=== PATIENT | male | born 1960 | race Hispanic/Latino ===

== ENCOUNTER 2024-02-07 18:11 | Inpatient (IN) | payer OTHER ==
[2024-02-07] MEDS ORDERED: Acetaminophen 500 MG TAB ONE (19:29)
[2024-02-07] MEDS ORDERED: Promethazine HCl 25 MG/ML VIAL IM PRN (22:45)
[2024-02-07] MEDS ORDERED: Glucagon 1 MG/ML KIT IM PRN (22:45)
[2024-02-07] MEDS ORDERED: Dextrose 50% Abboject 50 ML SYRINGE SLOW IVP PRN (22:45)
[2024-02-07] MEDS ORDERED: Ondansetron PF 4 MG/2 ML Vial IVP PRN (22:45)
[2024-02-07] MEDS ORDERED: Dextrose 5% in Water 1,000 ML IV PRN (22:45)
[2024-02-08] MEDS: Acetaminophen 325 MG TAB PO PRN (00:55)
[2024-02-08] MEDS: TETANUS AND DIPHTHERIA TOX/PF 0.5 ML DISP.SYRIN IM SCH (01:46)
[2024-02-08 03:25] VITALS: BMI 29.7
[2024-02-08] MEDS: TETANUS, DIPHTHERIA TOX,ADULT (TDVAX) 0.5 ML VIAL IM ONE (03:32)
[2024-02-08 06:48] LABS: Anion Gap 13 mmol/L (10-20); BUN (Urea Nitrogen) 9 mg/dL (8.4-25.7); Calc. Creatinine Clearance 121 mL/min (70-130); Calcium 8.9 mg/dL (7.8-10.44); Carbon Dioxide 22 mmol/L (23-31); Chloride 105 mmol/L (98-107); Estimated GFR 101; Glucose 139 mg/dL (80-115); Potassium 3.6 mmol/L (3.5-5.1); Sodium 136 mmol/L (136-145)
[2024-02-08 07:47] LABS: Hematocrit 43.1 % (42.0-52.0); Hemoglobin 14.9 g/dL (14.0-18.0); Mean Corpuscular HGB CONC 34.6 g/dL (32.0-36.0); Mean Corpuscular Volume 89.6 fL (78.0-98.0); Mean Platelet Volume 12.5 fL (7.4-10.4); Platelet Count 85 10x3/uL (130-400); RBC Distribution Width 13.5 % (11.5-14.5); Red Blood Cell (RBC) Count 4.81 mill/uL (4.70-6.10)
[2024-02-08 08:10] LABS: #Basophils 0.03 10x3/uL (0.0-0.2); #Eosinophils Less than 0.03 10x3/uL (0.0-0.7); %Basophils 0.5 % (0.0-1.0); %Eosinophils 0.3 % (0.0-10.0); %Lymphocytes 12.7 % (21.0-51.0); %Monocytes 7.5 % (0.0-10.0); %Neutrophils 78.7 % (42.0-75.0); Platelet Adequacy Comment Platelets Decreased; Poikilocytosis MODERATE=16-30 cells HPF (0-5); Polychromasia SLIGHT = 2-3 cells HPF (0-2)
[2024-02-08] MEDS: Famotidine 20 MG TAB PO SCH (10:51)
[2024-02-08] MEDS: traMADol HCl 50 MG TAB PO PRN (10:51)
[2024-02-08] MEDS: hydrALAZINE 20 MG/ML VIAL SLOW IVP PRN (10:59)
[2024-02-08] MEDS: Insulin Regular, Human 100 UNIT/ML 10 ML VIAL SC PRN (18:52)
[2024-02-09] MEDS ORDERED: prednisoLONE 1% Ophth Susp 5 ml Bottle EA EYE SCH (09:00)
[2024-02-09] MEDS: prednisoLONE 1% Ophth Susp 5 ml Bottle EA EYE SCH ×2 (09:23→21:27)
[2024-02-09] MEDS ORDERED: Ibuprofen 600 MG TAB PO PRN (22:15)
[2024-02-09] MEDS: Insulin Regular, Human 100 UNIT/ML 10 ML VIAL SC PRN (22:27)
[2024-02-09] MEDS: Labetalol HCl 100 MG/20 ML VIAL SLOW IVP PRN (23:13)
[2024-02-10] MEDS: Atorvastatin Calcium 10 MG TAB PO SCH (08:48)
[2024-02-10] MEDS: metFORMIN 500 MG TAB PO SCH (08:48)
[2024-02-10] MEDS: Lisinopril 20 MG TAB PO SCH (08:48)
[2024-02-10] MEDS ORDERED: Insulin NPH Human Isophane 100 UNITS/ML (10 ML VIAL) SC SCH (09:00)
[2024-02-10] MEDS ORDERED: INSULIN REGULAR 100 UNIT/ML SC SCH (09:00)
[2024-02-10] MEDS ORDERED: metFORMIN 500 MG TAB PO SCH (09:00)
[2024-02-10] MEDS: Insulin NPH Human Isophane 100 UNITS/ML (10 ML VIAL) SC SCH (09:40)
[2024-02-10] MEDS: Amlodipine 5 MG TAB PO SCH (21:05)
[2024-02-11] MEDS: Morphine 4 MG/ML VIAL SLOW IVP PRN (06:57)
[2024-02-11 12:37] VITALS: BP 137/77; TEMP 98.4
== END 2024-02-11 15:02 | DRG 86 ==
LOC: ERS 18:11 → EEVIPCON 18:11 → IMCU/EMU 22:45 → SURG B 02-10 17:29
PROVIDERS: ADMIT Surgery; ATTEND Surgery
DX: S06.5X0A Traumatic subdural hemorrhage without loss of consciousness, initial encounter (principal); S05.91XA Unspecified injury of right eye and orbit, initial encounter; I10 Essential (primary) hypertension; Y04.2XXA Assault by strike against or bumped into by another person, initial encounter; E11.40 Type 2 diabetes mellitus with diabetic neuropathy, unspecified; Z79.4 Long term (current) use of insulin; Z79.899 Other long term (current) drug therapy; Z79.84 Long term (current) use of oral hypoglycemic drugs
CPT/HCPCS: 36416; 70450; 70486; 72125; 80048; 85025; 90714; 94760; J0360; J1815; J2272

== ENCOUNTER 2024-03-03 00:26 | Inpatient (IN) | payer OTHER ==
[2024-03-03] MEDS ORDERED: levETIRAcetam 500 MG (5 mL) VIAL ONE (00:41)
[2024-03-03] MEDS ORDERED: Midazolam HCl 5 mg/ml Vial ONE (00:58)
[2024-03-03] MEDS ORDERED: KETAMINE 100 MG/ML (5ML VIAL) ONE (00:59)
[2024-03-03 02:20] LABS: #Basophils 0.04 10x3/uL (0.0-0.2); %Basophils 0.4 % (0.0-1.0); %Eosinophils 0.3 % (0.0-10.0); %Lymphocytes 4.3 % (21.0-51.0); %Monocytes 4.7 % (0.0-10.0); %Neutrophils 88.9 % (42.0-75.0); Hematocrit 36.3 % (42.0-52.0); Hemoglobin 12.5 g/dL (14.0-18.0); Mean Corpuscular HGB CONC 34.4 g/dL (32.0-36.0); Mean Corpuscular Hemoglobin 30.4 pg (27.0-31.0); Mean Corpuscular Volume 88.3 fL (78.0-98.0); Mean Platelet Volume 12.3 fL (7.4-10.4); Platelet Count 100 10x3/uL (130-400); RBC Distribution Width 12.7 % (11.5-14.5); Red Blood Cell (RBC) Count 4.11 mill/uL (4.70-6.10)
[2024-03-03 02:28] LABS: ALT (SGPT) 12 U/L (8-55); AST (SGOT) 12 U/L (5-34); Albumin 3.7 g/dL (3.4-4.8); Alkaline Phosphatase 127 U/L (40-110); Anion Gap 19 mmol/L (10-20); BUN (Urea Nitrogen) 12 mg/dL (8.4-25.7); Bilirubin, Total 0.5 mg/dL (0.2-1.2); Calc. Creatinine Clearance 0 mL/min (70-130); Calcium 9.1 mg/dL (7.8-10.44); Carbon Dioxide 17 mmol/L (23-31); Chloride 99 mmol/L (98-107); Estimated GFR 95; Glucose 250 mg/dL (80-115); Potassium 3.8 mmol/L (3.5-5.1); Protein, Total 7.7 g/dL (5.8-8.1); Sodium 131 mmol/L (136-145)
[2024-03-03 02:29] LABS: Troponin I Less than 0.010 ng/mL (< 0.028)
[2024-03-03] MEDS ORDERED: Acetaminophen 650 MG Suppository PR PRN (03:50)
[2024-03-03] MEDS ORDERED: Ondansetron ODT 4 MG TAB PO PRN (03:50)
[2024-03-03] MEDS ORDERED: Dextrose 5% in Water 1,000 ML IV PRN (03:53)
[2024-03-03] MEDS ORDERED: Glucagon 1 MG/ML KIT IM PRN (03:53)
[2024-03-03] MEDS ORDERED: Dextrose 50% Abboject 50 ML SYRINGE SLOW IVP PRN (03:53)
[2024-03-03 08:16] LABS: Lactic Acid 1.36 mmol/L (0.5-2.2)
[2024-03-03 08:27] VITALS: BMI 30.2
[2024-03-03] MEDS: Acetaminophen 325 MG TAB PO SCH (09:27)
[2024-03-03] MEDS: Famotidine 20 MG TAB PO SCH (09:28)
[2024-03-03] MEDS: Lisinopril 20 MG TAB PO SCH (09:28)
[2024-03-03] MEDS: levETIRAcetam 500 MG (5 mL) VIAL SLOW IVP SCH (09:28)
[2024-03-03] MEDS: Famotidine/PF 20 mg/2ml Vial SLOW IVP SCH (09:28)
[2024-03-03] MEDS: HYDROcodone/Acetaminophen 5/325 mg Tablet PO PRN (09:32)
[2024-03-03] MEDS: Insulin Lispro 100 UNIT/ML 10 ML VIAL SC PRN ×2 (09:37→20:19)
[2024-03-03] MEDS ORDERED: Magnevist 469MG/ML 20 ML VIAL ONE (10:34)
[2024-03-03] MEDS: hydrALAZINE 20 MG/ML VIAL SLOW IVP PRN (16:34)
[2024-03-03] MEDS: metFORMIN 500 MG TAB PO SCH (16:54)
[2024-03-03] MEDS: Amlodipine 10 MG TAB PO SCH (20:04)
[2024-03-03] MEDS: Atorvastatin Calcium 10 MG TAB PO SCH (20:04)
[2024-03-03] MEDS ORDERED: Amlodipine 5 MG TAB PO SCH ×2 (21:00)
[2024-03-04] MEDS: Ondansetron PF 4 MG/2 ML Vial IVP PRN (00:02)
[2024-03-04] MEDS: Lorazepam 2 MG/ML VIAL SLOW IVP PRN (00:30)
[2024-03-04 04:00] LABS: #Basophils 0.03 10x3/uL (0.0-0.2); %Basophils 0.4 % (0.0-1.0); %Eosinophils 0.7 % (0.0-10.0); %Lymphocytes 13.3 % (21.0-51.0); %Monocytes 8.5 % (0.0-10.0); %Neutrophils 76.5 % (42.0-75.0); Hemoglobin 12.6 g/dL (14.0-18.0); Mean Corpuscular HGB CONC 34.1 g/dL (32.0-36.0); Mean Corpuscular Hemoglobin 29.9 pg (27.0-31.0); Mean Corpuscular Volume 87.7 fL (78.0-98.0); Mean Platelet Volume 12.1 fL (7.4-10.4); Platelet Count 98 10x3/uL (130-400); RBC Distribution Width 12.6 % (11.5-14.5); Red Blood Cell (RBC) Count 4.22 mill/uL (4.70-6.10)
[2024-03-04 04:12] LABS: ALT (SGPT) 12 U/L (8-55); AST (SGOT) 12 U/L (5-34); Albumin 3.4 g/dL (3.4-4.8); Alkaline Phosphatase 104 U/L (40-110); Anion Gap 16 mmol/L (10-20); BUN (Urea Nitrogen) 15 mg/dL (8.4-25.7); Bilirubin, Total 0.6 mg/dL (0.2-1.2); Calc. Creatinine Clearance 109 mL/min (70-130); Calcium 8.8 mg/dL (7.8-10.44); Carbon Dioxide 21 mmol/L (23-31); Chloride 100 mmol/L (98-107); Estimated GFR 98; Globulin 3.5 g/dL (2.4-3.5); Glucose 287 mg/dL (80-115); Protein, Total 6.9 g/dL (5.8-8.1); Sodium 133 mmol/L (136-145)
[2024-03-04] MEDS ORDERED: Insulin NPH Human Isophane 100 UNITS/ML (10 ML VIAL) SC SCH (09:00)
[2024-03-04] MEDS: Insulin NPH Human Isophane 100 UNITS/ML (10 ML VIAL) SC SCH (11:15)
[2024-03-04 12:33] VITALS: TEMP 97.9
[2024-03-04 16:15] VITALS: BP 154/77
== END 2024-03-04 17:59 | DRG 100 ==
LOC: EEVIPCON 00:26 → ERS 00:26 → 2SE 04:12
PROVIDERS: ADMIT Student in an Organized Health Care Education/Training Program; ATTEND Internal Medicine
PROC: 4A00X4Z Measurement of Central Nervous Electrical Activity, External Approach (ICD-10-PCS; principal; 2024-03-03)
DX: G40.901 Epilepsy, unspecified, not intractable, with status epilepticus (principal); I62.03 Nontraumatic chronic subdural hemorrhage; Z79.899 Other long term (current) drug therapy; Z79.84 Long term (current) use of oral hypoglycemic drugs; E11.9 Type 2 diabetes mellitus without complications; I10 Essential (primary) hypertension; E78.5 Hyperlipidemia, unspecified; Z98.890 Other specified postprocedural states; F31.9 Bipolar disorder, unspecified; Z87.891 Personal history of nicotine dependence; K21.9 Gastro-esophageal reflux disease without esophagitis; Z79.4 Long term (current) use of insulin
CPT/HCPCS: 36415; 36416; 70450; 70553; 76376; 80053; 83036; 83605; 84146; 84484; 85025; 93005; 94760; 95700; 95711; 95957; 96372; 96374; J0360; J1815; J1953; J2060; J2250; J2405

== ENCOUNTER 2024-03-05 11:25 | Emergency (ER) | payer OTHER ==
[2024-03-05] MEDS ORDERED: Metoclopramide HCl 10 MG (2 mL) VIAL ONE (12:16)
[2024-03-05] MEDS ORDERED: Acetaminophen 325 MG TAB ONE (12:16)
== END 2024-03-05 15:10 ==
LOC: ERS 11:25 → EEVIPCON 11:25 → ERS 15:10
DX: I62.00 Nontraumatic subdural hemorrhage, unspecified (principal); R51.9 Headache, unspecified; R29.700 NIHSS score 0; E11.40 Type 2 diabetes mellitus with diabetic neuropathy, unspecified; I10 Essential (primary) hypertension; Z79.4 Long term (current) use of insulin; Z87.891 Personal history of nicotine dependence
CPT/HCPCS: 70450; 96374; J2765